=== PATIENT | male | born 1940 | race Caucasian/White ===

== ENCOUNTER 2022-07-14 11:39 | Emergency (ER) | payer MEDICARE ==
[~2022-07-14] VITALS: Ht 167.6 cm; Wt 93.2 kg
[~2022-07-14 11:39] MED LIST: ACTOS30 MG PO; AMARYL1 M1 PO; ASPIRIN81 MG PO; ATENOLOL25 MG PO; LOPID600 MG PO; LOSARTAN POT25 MG PO; PLAVIX75 MG PO; PRAVASTATIN SOD20 MG PO
[2022-07-14 12:59] VITALS: BP 186/97
[2022-07-14 14:02] VITALS: BP 186/97
== END 2022-07-14 14:19 | disposition home or self-care (01) ==
LOC: ED 11:39
PROC: 0DH67UZ Insertion of Feeding Device into Stomach, Via Natural or Artificial Opening (ICD-10-PCS; principal; 2022-07-14)
DX: K94.23 Gastrostomy malfunction (principal); I10 Essential (primary) hypertension; I25.10 Atherosclerotic heart disease of native coronary artery without angina pectoris; Y83.3 Surgical operation with formation of external stoma as the cause of abnormal reaction of the patient, or of later complication, without mention of misadventure at the time of the procedure; Z95.5 Presence of coronary angioplasty implant and graft; Z92.3 Personal history of irradiation; Z92.21 Personal history of antineoplastic chemotherapy; Z85.21 Personal history of malignant neoplasm of larynx; Z79.84 Long term (current) use of oral hypoglycemic drugs; Z90.02 Acquired absence of larynx